=== PATIENT | female | born 1985 | race Caucasian/White ===

== ENCOUNTER 2021-07-21 13:37 | Emergency (ER) | payer OTHER, SELFPAY ==
--- NOTE | 2021-07-21 13:43 | ED.GENADULT ---
HPI - General Adult General Chief complaint: Upper Respiratory Infection Stated complaint: HEADACHE Time Seen by Provider: 07/21/21 13:50 Source: patient, RN notes reviewed and old records reviewed Mode of arrival: ambulatory Limitations: no limitations History of Present Illness HPI narrative: 35 year old female who presents to [facility] care with complaints of what she thinks is a sinus headache since yesterday with fever of 101F at 0600 today with body aches.Patient has not had COVID or influenza vaccinations, reports that she took home test for COVID but sneezed and pulled out swab concerned she didn't get adequate sample. She states that her PCP stated she needed to have a covid and flu test done here today but she wouldn't see her in the office. Patient denies any cough, states some post nasal drainage and a scratchy throat also, has taken some Dayquil and some Tylenol for her symptoms. MD complaint: headache fever, body aches Onset (ago): day(s) (day 2) Treatments prior to arrival: other (Tylenol this morning) Related Data Home Medications Medication Instructions Recorded Confirmed norethindrone (contraceptive) mg 07/21/21 Allergies Allergy/AdvReac Type Severity Reaction Status Date / Time No Known Allergies Allergy Unverified 07/17/14 11:54 Review of Systems Review of Systems: CONSTITUTIONAL: Positive for fever, chills, or sweats. EYES: Denies visual changes, redness, or discharge. ENT: Positive for post nasal drainage, congestion,scratchy throat, no otalgia. CARDIOVASCULAR: Denies chest pain, palpitations, or edema. RESPIRATORY: Denies cough or dyspnea. GASTROINTESTINAL: Denies abdominal pain, nausea, vomiting, or diarrhea. GENITOURINARY: Denies dysuria or hematuria. SKIN: Denies rash or itching. MUSCULOSKELETAL: Denies back pain, joint pain, positive for body aches NEUROLOGIC: Positive for frontal headache,no numbness, or weakness. PSYCHIATRIC: Denies anxiety or depression. All systems reviewed & are unremarkable except as noted in HPI and below PMFSH Past Medical History Medical History (Updated 07/21/21 @ 14:29 by Maine Garcia NP) Sinusitis Surgical History Surgical History (Updated 07/21/21 @ 14:15 by Maine Garcia NP) No history of previous surgery Family History Family History (Updated 07/21/21 @ 14:15 by Maine Garcia NP) Grandparent Hypertension Social History Social History (Updated 07/21/21 @ 14:16 by Maine Garcia NP) Smoking status: Never smoker Alcohol intake: current Substance use: never Living arrangements: with family Gender identity (if verbalized by the patient): Female Comments At time of signature, agree with nursing past medical, surgical, social and family history. There is no relevant family history pertinent to the presenting complaint Exam Narrative: GENERAL: Well-appearing, well-nourished, and in no acute distress. HEAD: Normocephalic, atraumatic. EYES: PERRLA and EOMI. ENT: Nares red,post nasal rhinorrhea no epistaxis. Mucous membranes moist.TM's normal with good light reflex, throat mildly red with no lesions or exudates or any tonsil enlargement. NECK: Supple.no lymphadenopathy CHEST: Clear to auscultation. No respiratory distress.SAO2 100% on room air. HEART: Regular rate and rhythm. No murmur heard. Normal peripheral pulses. ABDOMEN: Soft, nontender, nondistended, normal active bowel sounds. EXTREMITIES: Normal range of motion. No edema. SKIN: Warm, dry, no rash. NEURO: No focal deficits. Alert and oriented x3. Course Course Level of Care: Express Care Visit Vital Signs Vital signs: Vital Signs Temperature 36.8 C 07/21/21 13:45 Pulse Rate 83 07/21/21 13:45 Respiratory Rate 16 07/21/21 13:45 Blood Pressure 92/74 L 07/21/21 13:45 Pulse Oximetry 100 07/21/21 13:45 Temperature 36.8 C 07/21/21 13:45 Pulse Rate 83 07/21/21 13:45 Respiratory Rate 16 07/21/21 13:45 Blood Pressure 92/74 L
[2021-07-21 13:45] VITALS: BP 92/74; PULSE 83; RESP 16; TEMP 36.8; O2SAT 100
[2021-07-22 20:23] LABS: SARS-CoV-2 RNA PCR Positive
== END 2021-07-21 14:42 | disposition home or self-care (01) ==
PROVIDERS: Emergency Provider Registered Nurse; PCP Physician Assistant
DX: U07.1 COVID-19 (principal); J10.1 Influenza due to other identified influenza virus with other respiratory manifestations
CPT/HCPCS: 87426; 87804; 99203; C9803; G0463; U0003; U0005

== ENCOUNTER 2025-04-08 10:50 | Emergency (ER) | payer OTHER, SELFPAY ==
--- NOTE | ~2025-04-08 | XR_ITS ---
Examination: XR chest 2V Clinical History: cough/fever/sob Comparison: Cough, fever, SOB Technique: PA and Lateral Findings: Cardiomediastinal silhouette normal size and configuration. Lungs clear. Mild hyperinflation. Bilateral nipple shadow. No acute bony abnormality. Mild pectus excavatum. IMPRESSION: 1. No acute cardiopulmonary findings. Reviewed, dictated and finalized at location R.
--- NOTE | 2025-04-08 10:52 | ED.URI ---
HPI - URI/Sore Throat General Chief Complaint: Upper Respiratory Infection Stated Complaint: Cough Time Seen by Provider: 04/08/25 10:52 Source: patient Mode of arrival: ambulatory Limitations: no limitations History of Present Illness HPI Narrative: Angel is a 39-year-old female patient presenting to the clinic today with complaints a cough, intermittent tactile fever, and shortness of breath x3 weeks. She reports 1 of her children were diagnosed with pneumonia and another 1 with went through a respiratory illness. She reports that she has had fever off and on but not for the last few days. Cough is productive but she does not know the color of the phlegm. Does have some sinus congestion but does not know the color of her nasal drainage. She denies any chest pain. Has been taking natural medications for her symptoms MD elicited complaint: sore throat and nasal congestion Related Data Home Medications ?Medication ?Instructions ?Recorded ?Confirmed ?Last Taken ?Type norethindrone (contraceptive) 0.35 mg 07/21/21 Unknown History mg tablet Allergies Allergy/AdvReac Type Severity Reaction Status Date / Time No Known Allergies Allergy Verified 04/08/25 11:02 Review of Systems Review of Systems: Pertinent positives per HPI. Patient denies any fever, chills, rash, headache, visual changes, dizziness, shortness of breath, chest pain, palpitations, nausea, vomiting, diarrhea, constipation, abdominal pain, or any urinary issues. [facility] Past Medical History Medical History Sinusitis Surgical History Surgical History No history of previous surgery Family History Family History Grandparent Hypertension Social History Social History Smoking status: Never smoker Alcohol intake: current Substance use: never Living arrangements: with family Gender identity (if verbalized by the patient): Female Comments At the time of my signature, I reviewed and agree with the nursing past medical, surgical, social, and family history. There is no relevant family history pertinent to the patient complaint. Exam Narrative: General: Well-developed, well nourished, in no apparent distress Head: Normocephalic, atraumatic Eyes: Pupils equally round and reactive to light bilaterally, EOM intact, sclera and conjunctive clear, no discharge, lids normal Ears: TMs intact and congested, ear canals clear, no drainage, grossly hearing normal. Nose: Nares patent, clear discharge, moderate inflammation, no sinus tenderness. Mouth: Oral pharynx red without lesions or masses, good dentition, MMM. Postnasal drip Neck: Supple, trachea midline, no enlargement of anterior or posterior cervical nodes, no thyroid masses or goiter palpable. Cardio: Regular rate and rhythm, s1 and s2 normal, no murmur appreciated. Resp: Diminished in the bases, mild crackles heard over the right upper and right middle lung [place] posteriorly, no rhonchi,wheezing or rubs Course Course Emergency Course: Portions of this record may have been created with voice recognition software. Level of Care: Express Care Visit Vital Signs Vital signs: Vital Signs Temperature 36.9 C 04/08/25 11:02 Pulse Rate 66 04/08/25 11:02 Respiratory Rate 17 04/08/25 11:02 Blood Pressure 98/65 L 04/08/25 11:02 Pulse Oximetry 99 04/08/25 11:02 Oxygen Delivery Room Air 04/08/25 11:02 Temperature 36.9 C 04/08/25 11:02 Pulse Rate 66 04/08/25 11:02 Respiratory Rate 17 04/08/25 11:02 Blood Pressure 98/65 L 04/08/25 11:02 Pulse Oximetry 99 04/08/25 11:02 Oxygen Delivery Room Air 04/08/25 11:02 Vital signs reviewed MDM - URI/Sore Throat MDM Narrative Medical decision making narrative: At the time of visit patient is resting comfortably on the exam table. Patient appears to be nontoxic. Complaints a cough, intermittent tactile fever, and shortness of breath x3 weeks. She reports 1 of her children were diagnosed with pneumonia and another 1 went through a respiratory illness. She reports that she has had fever off and on but not for the last few days. Cough is productive but she does not know the color of the phlegm. Does have some sinus congestion but does not know the color of her nasal drainage. She denies any chest pain. On exam patient has intact/congested TMs, clear nasal drainage with moderate anterior turbinate inflammation, no sinus tenderness, oral pharynx with postnasal drip, chest x-ray diminished in the bases, faint crackles heard over the right upper/right middle lobe, heart rates regular rate rhythm. Vital signs are stable, oxygen levels 99-100% on room air. Patient is able speak in full sentences. Chest x-ray was ordered. Diagnostics: Chest x-ray is negative for any acute cardiopulmonary process. Plan: I suspect patient has acute bronchitis. Prescription for prednisone, Augmentin, Tessalon Perles, and albuterol inhaler was sent to the pharmacy to cover for purulent bronchitis. Supportive measures were discussed with the patient and they voiced understanding discharge instructions and agrees to treatment plan. Return precautions reviewed Differential Diagnosis Differential diagnosis: Likely upper respiratory infection, otitis media, sinusitis, viral infection, bronchitis, influenza, pharyngitis and other (COVID) Imaging Data Radiologist's impression: ITS Impressions Chest X-Ray 04/08/25 11:14 IMPRESSION: 1. No acute cardiopulmonary findings. Discharge Plan Discharge Clinical Impression: Bronchitis Patient Disposition: Home Condition: Stable Instructions: Antibiotic Form, Acute Bronchitis (ED) Additional Instructions: Chest x-rays negative for any acute cardiopulmonary process. Take prescription medications only as prescribed-albuterol inhaler, Tessalon Perles, prednisone, and Augmentin Increase fluids and stay well hydrated May take Tylenol or motrin as directed on bottle for pain/fever May use Flonase 1 spray in each nare daily May take OTC antihistamines such as Zyrtec or Claritin daily as directed on bottle May apply Vicks vapor rub to chest to open sinuses Sinus rinses for congestion Cepacol spray, cough drops, throat lozenges, warm tea with honey/lemon, gargle salt water to soothe throat BRAT diet for diarrhea Clear liquids x 24 hours then advance as tolerated for nausea/vomiting Go to the ED if you develop a worsening in your condition- high fever not controlled by Tylenol or Motrin, dehydration, weakness, lethargy, shortness of breath, or chest pain. Follow up with your PCP in 3-5 days if symptoms persist. Patient Language: [place] African Prescriptions: New benzonatate 200 mg capsule 200 mg PO TID 7 Days Qty: 21 0RF prednisone 20 mg tablet 40 mg PO DAILY 5 Days Qty: 10 0RF albuterol sulfate 90 mcg/actuation HFA aerosol inhaler 2 puff inhalation Q4-6H PRN (Reason: shortness of breath or wheezing) 30 Days Qty: 8.5 0RF amoxicillin-pot clavulanate 875-125 mg tablet 1 tablet PO Q12H 7 Days Qty: 14 0RF No Action norethindrone (contraceptive) 0.35 mg tablet Follow-up/Referrals: Key[place],ZBIGNIEW Jett [Primary Care Provider, Unknown] Time of Disposition: 11:18 Quality NIHSS Nursing Documentation ED NIHSS nursing documentation: reviewed/agree
[2025-04-08 11:02] VITALS: BP 98/65; PULSE 66; RESP 17; TEMP 36.9; O2SAT 99
== END 2025-04-08 11:24 | disposition home or self-care (01) ==
PROVIDERS: Emergency Provider Nurse Practitioner Family; PCP Physician Assistant
DX: J40 Bronchitis, not specified as acute or chronic (principal)
CPT/HCPCS: 71046; 99213; G0463